=== PATIENT | male | born 1975 | race Caucasian/White ===

== ENCOUNTER 2024-06-26 08:11 | Inpatient (IN) | payer OTHER, SELFPAY ==
[2024-06-24 18:26] VITALS: BMI 28.3
[2024-06-24 18:28] VITALS: BP 127/82
[2024-06-24 18:56] LABS: % Basophils 0.5 % (0-2); % Eosinophils 2.7 % (0-6); % Immature Granulocytes 0.8 % (0-0.5); % Lymphocytes 7.3 % (20.5-51.1); % Monocytes 4.7 % (1.7-9.3); Absolute Basophils 0.1 10^3/uL (0-0.2); Absolute Eosinophils 0.6 10^3/uL (0-0.7); Absolute Immature Granulocytes 0.2 10^3/uL (0-0.05); Absolute Lymphocytes 1.6 10^3/uL (1.2-3.4); Hematocrit 38.8 % (39.0-52.0); Hemoglobin 12.9 g/dL (13.0-18.0); Mean Corp Hgb Conc. 33.2 g/dL (33.0-37.0); Mean Corpuscular Hgb 29.9 pg (27.0-31.0); Mean Platelet Volume 9.8 fL (7.4-10.4); Nucleated Red Blood Cells % 0 % (-); Platelet Count 303 10^3/uL (130-400); Red Blood Cell Count 4.31 10^6/uL (4.70-6.10); Red Cell Dist. Width 12.7 % (11.5-14.5); White Blood Cell Count 21.4 10^3/uL (4.8-10.8)
[2024-06-24 19:11] LABS: ALT (SGPT) 40 U/L (0-50); AST (SGOT) 29 U/L (17-59); Albumin 4.1 g/dl (3.5-5.0); Alkaline Phosphatase 150 U/L (38-126); Blood Urea Nitrogen 12 mg/dl (9-20); Calcium 9.1 mg/dl (8.4-10.2); Carbon Dioxide 30 mmol/L (22-30); Chloride 96 mmol/L (98-107); Glucose 98 mg/dl (70-99); Potassium 4.3 mmol/L (3.5-5.1); Sodium 138 mmol/L (135-145); Total Bilirubin 0.8 mg/dl (0.2-1.3); Total Protein 7.3 g/dl (6.3-8.2); eGFR > 60.00
[2024-06-24 20:00] VITALS: BP 130/78
[2024-06-24 20:11] VITALS: BP 126/72
--- NOTE | 2024-06-24 20:39 | ED.GENMED ---
History of Present Illness
General
Chief Complaint: Swelling
Source: patient
Exam Limitations: none
Time Seen by Provider: 06/24/24 20:25
Nursing documentation reviewed up to this point in time: agreed with
History of Present Illness
History of Present Illness:
49-year-old male with past medical history of biliary cancer recently diagnosed, currently following at [facility] but not yet on any chemotherapy; he presents to the ER with his for evaluation of ankle pain and swelling. Patient reports that he did
not have any trauma or injury. He says that on Saturday he started having pain particular with weightbearing on his left ankle. He says that on Saturday he started to notice swelling and has had increased swelling, redness, pain since. He had an
outpatient ultrasound of his leg to evaluate for DVT at [facility] today and this was negative. He had lab work sent off and he was found to have a markedly elevated white blood cell count and there was concern that he had developed an
infection and so he was referred to the emergency room. He has pains in his right flank from his known cancer diagnosis but denies any new chest pains or shortness of breath. He denies any fevers or chills. He denies any other complaints.
Review of Systems
Review of Systems
All Other Systems: ROS reviewed and negative except as documented in HPI and ROS
Constitutional: Denies fever or chills
Respiratory: Denies trouble breathing
Cardiac: Denies chest pain
ABD/GI: Denies vomiting
: Reports flank pain (Chronic)
Musculoskeletal: Reports joint swelling and edema
Skin: Reports other (Redness of the lower leg/ankle)
Neurological: Denies headache
Phy Exam
Physical Exam
Physical Exam:
General: Awake, alert, oriented x3; no acute distress
Head: Normocephalic, atraumatic
Eyes: Conjunctiva normal, EOMI
Throat: Airway intact, handling secretions
Neck: Trachea midline, supple without meningismus
Lungs: Clear to auscultation bilaterally, no wheezing, rales, rhonchi
Heart: Regular rate and rhythm, no murmurs, gallops, or rubs
Abd: Soft, non distended, nontender
Neuro: No gross deficits
Skin: Patient has some slight erythema just proximal to the lateral malleolus on the left lower leg as well as some slight erythema along the medial malleolus and the left ankle patient has significant edema of the left
Extremities: Patient has marked edema lower leg approximately the distal one third as well as the entire ankle; he has no focal tenderness along either malleolus or along the fifth metatarsal, midfoot, instep; he does have a more prominent area of
induration lateral lower leg and area of maximal erythema; he does allow for full passive range of motion of the ankle with no pain
Scores
Heart Failure Risk
Heart Failure Risk Score: Not Applicable
Heart Score for Chest Pain Patients
STEMI patient?: Not applicable
Withdrawal Assessment of Alcohol
Withdrawal Assessment Completed?: Not applicable
Course
Orders/Labs/Results
Orders:
Orders
06/24/24 18:36
Complete Blood Count/With Diff Urgent
Comprehensive Metabolic Panel Urgent
06/24/24 20:39
CT Lower Ext W/iv Cont Lt Urgent
Comment: scan mid calf to foot--c/f abscess lat lower leg
Reason For Exam: left lower leg/ankle pain, swelling
06/24/24 21:03
Blood Culture Q30M
PETER Source: Blood/Venous
Specimen Description:
Blood Culture Q30M
PETER Source: Blood/Venous
Specimen Description:
06/24/24 22:43
CeFAZolin 2 grams IV Push NOW CeFAZolin 2 GRAM [Ancef] 2 grams in 10 ml IV NOW
Abnormal Lab Results
06/24/24
18:36
WBC 21.4 H 10^3/uL
(4.8-10.8)
RBC 4.31 L 10^6/uL
(4.70-6.10)
Hgb 12.9 L g/dL
(13.0-18.0)
Hct 38.8 L %
(39.0-52.0)
Abs Immat Gran (auto) 0.2 H 10^3/uL
(0-0.05)
Absolute Neuts (auto) 18.0 H 10^3/uL
(1.4-6.5)
Absolute Monos (auto) 1.0 H 10^3/uL
(0.1-0.6)
Immature Gran % 0.8 H %
(0-0.5)
Neutrophils % 84.0 H %
(42.2-75.2)
Lymphocytes % 7.3 L %
(20.5-51.1)
Chloride 96 L mmol/L
(98-107)
Creatinine 0.5 L mg/dL
(0.7-1.3)
Alkaline Phosphatase 150 H U/L
(38-126)
06/24/24 18:36
06/24/24 18:36
Vital Signs
Initial and Last Documented VS:
Initial Vital Signs
Temp Pulse Resp BP Pulse Ox
37.6 C 78 16 127/82 98
06/24/24 18:28 06/24/24 18:28 06/24/24 18:28 06/24/24 18:28 06/24/24 18:28
Last Documented Vital Signs
Temp Pulse Resp BP Pulse Ox
37.6 C 65 21 115/74 98
06/24/24 18:28 06/24/24 22:00 06/24/24 22:00 06/24/24 22:00 06/24/24 22:00
MDM/Problems Addressed
Differential Diagnosis Includes:
Fracture, bony metastasis, cellulitis, abscess, DVT
MDM/Problems Addressed:
49-year-old male presents with swelling and pain in the left ankle in the absence of trauma; negative DVT study today, but noted to have marked leukocytosis and is concerned for infection so he was referred to the ER. Vitals and exam as above.
Ruled out for DVT earlier today at [facility] although unfortunately study not available for review. Denies any trauma no focal tenderness or pain with range of motion of the ankle very low suspicion that this is an acute fracture. He does have an
area of induration on the lateral lower leg concern that this could potentially represent an abscess although interestingly no wounds or abrasions on the skin that would represent portal of entry. Check a CT of the lower leg. Labs from triage were
notable for a leukocytosis to 20.4. Will send off blood cultures. Will reassess after the above.
CT shows subcutaneous edema but no subcutaneous emphysema, no abscess and no joint effusion to suggest that this is an inflammatory arthropathy or septic joint�my impression is this is a cellulitis; unclear etiology given that he has no breaks in
the skin on the left lower leg that would represent a portal for bacterial injury. He does have borderline fever here 99.5 �F significant leukocytosis�blood culture sent off. Will treat with IV antibiotics and err towards admission for monitoring.
Case discussed with hospitalist.
Chronic conditions affecting care:
Biliary cancer
*Radiology
Radiology exam reviewed: radiology read reviewed
*Pulse Oximetry
Patient hypoxic: no
*Critical Care Note
Total Time (30-74mins, 75-104mins- exclusive of procedures): Not Applicable
Data Reviewed
Source: patient and family
Patient Management
Discussion with other providers: Hospitalist (Discussed with hospitalist)
Escalation/DeEscalation of care consider admission/obs:
Admission indicated
ED Attending Note
-
Portions of this chart may have been created with voice recognition software.� Occasional wrong word or��sound alike� substitutions may have occurred due to the inherent limitations of voice recognition software.
Discharge Plan
Departure
Referrals:
Vadim Raygoza MD [Family Provider] -
Interventions
Interventions:
*Risk Screen - Suicide Last Done: 06/24/24 18:28
*General Assessment Last Done: 06/24/24 18:28
ED- Fall Risk Assessment Last Done: 06/24/24 20:34
*ED COVID-19 Vaccine History Last Done: 06/24/24 18:28
ED- Cardiac Assessment Last Done: 06/24/24 20:34
ED- Pulmonary Assessment Last Done: 06/24/24 20:34
ED-Skin Assessment Last Done: 06/24/24 20:34
Discharge Date and Time
Print Language: BELARUSIAN
[2024-06-24 21:54] VITALS: BP 127/70
[2024-06-24 22:00] VITALS: BP 115/74
--- NOTE | 2024-06-24 23:03 | HPS.HSE ---
Family Physician
-
Family Physician: Vadim Raygoza
Chief Complaint
-
left ankle pain
History of Present Illness
49-year-old male past medical history of cholangiocarcinoma follows at [facility] not on chemotherapy yet, presenting with left ankle pain and swelling. He denies any trauma or injury. 4 days ago he started having pain and bump in the calf. 2 days ago
started noticing swelling and increased swelling and redness and pain in the left ankle. He had outpatient ultrasound to evaluate for DVT at [facility] today this was negative. He had blood work which showed elevated white blood cell count and there was
concern that he developed infection so was sent to the emergency room. He has pain in his right flank from known cancer diagnosis but denies any new chest pain or shortness of breath. He denies any fevers or chills.
He uses marijuana. Denies smoking or nicotine use.
Medical History
Past Medical History
Past Medical History: Reports Other (cholangiocarcinoma )
Past Surgical History: Reports None
Social History
Tobacco: Non-smoker
Alcohol: None
Drug: Marijuana
Family History
Family History: Not pertinent
Allergies / Home Medications
Allergies reflects when Allergies were last updated in [employer].
Home Medications with original date entered in [employer]
Allergy/Medication List:
Allergies
Allergy/AdvReac Type Severity Reaction Status Date / Time
No Known Allergies Allergy Verified 06/24/24 18:33
Review of Systems
-
History Source: Patient
A 12 point ROS was completed and negative except as noted: Yes
Constitutional: Reports No Symptoms
EENT: Reports No Symptoms
Respiratory: Reports No Symptoms
Cardiac: Reports No Symptoms
Abdomen/GI: Reports No Symptoms
: Reports No Symptoms
Musculoskeletal: Reports No Symptoms
Skin: Reports See HPI
Neurological: Reports No Symptoms
Endocrine: Reports No Symptoms
Hematologic/Lymphatic: Reports No Symptoms
Psych: Reports No Symptoms
Physical Exam
Vital Signs
Vital Signs
Temp Pulse Resp BP Pulse Ox
99.7 F 65 21 115/74 98
06/24/24 18:28 06/24/24 22:00 06/24/24 22:00 06/24/24 22:00 06/24/24 22:00
Physical Exam
General: Well Developed, Well Nourished and No Apparent Distress
HEENT: NormoCephalic, Moist mucous membranes and Atraumatic
Respiratory: Clear
Cardiac: S1/S2 and Regular Rhythm; No Murmur or Rub
GI: Soft, Non Tender, Non Distended and Normal Bowel Sounds; No Organomegaly
Rectal: Deferred by Provider
Musculoskeletal: No Clubbing, No Cyanosis and No Edema
Skin: Other (left ankle swelling and redness ); No Rash
Neuro: Nonfocal/grossly intact
Laboratory Results
-
06/24/24 18:36
06/24/24 18:36
Laboratory Results
Total Bilirubin 0.8 mg/dl (0.2-1.3) 06/24/24 18:36
AST 29 U/L (17-59) 06/24/24 18:36
ALT 40 U/L (0-50) 06/24/24 18:36
Alkaline Phosphatase 150 U/L (38-126) H 06/24/24 18:36
Data Reviewed
-
Lab Data: Labs Reviewed by me
Old Records: Reviewed
Impression/Plan
-
IMPRESSION:
PLAN:
# Left ankle cellulitis
-CT scan left lower extremity just shows mild edema of the subcutaneous tissues of the hindfoot region without subcutaneous emphysema or involvement of muscle or fascial planes
-Venous ultrasound at [facility] today negative
-Blood cultures
-Cefazolin
Cholangiocarcinoma
-Follows at [facility]
-Not yet on chemotherapy
Full code
DVT prophylaxis�heparin
Regular diet
[2024-06-24] MEDS: ANCEF 10 IV (23:04)
[2024-06-24 23:05] VITALS: BP 123/76
[2024-06-25] VITALS: BP 115/66
[2024-06-25 00:37] VITALS: BP 115/70; BMI 27.6
[2024-06-25] MEDS: ANCEF 10 IV ×2 (05:53→14:12)
[2024-06-25 06:22] LABS: % Basophils 0.5 % (0-2); % Eosinophils 3.3 % (0-6); % Immature Granulocytes 0.8 % (0-0.5); % Lymphocytes 7.9 % (20.5-51.1); % Monocytes 5.4 % (1.7-9.3); % Neutrophils 82.1 % (42.2-75.2); Absolute Basophils 0.1 10^3/uL (0-0.2); Absolute Eosinophils 0.6 10^3/uL (0-0.7); Absolute Immature Granulocytes 0.2 10^3/uL (0-0.05); Absolute Lymphocytes 1.5 10^3/uL (1.2-3.4); Absolute Monocytes 1.1 10^3/uL (0.1-0.6); Absolute Neutrophils 16.1 10^3/uL (1.4-6.5); Hematocrit 36.3 % (39.0-52.0); Hemoglobin 12.3 g/dL (13.0-18.0); Mean Corp Hgb Conc. 33.9 g/dL (33.0-37.0); Mean Corpuscular Hgb 30.1 pg (27.0-31.0); Mean Platelet Volume 10.2 fL (7.4-10.4); Nucleated Red Blood Cells % 0 % (-); Platelet Count 281 10^3/uL (130-400); Red Blood Cell Count 4.08 10^6/uL (4.70-6.10); Red Cell Dist. Width 12.7 % (11.5-14.5); White Blood Cell Count 19.6 10^3/uL (4.8-10.8)
[2024-06-25 06:57] LABS: ALT (SGPT) 35 U/L (0-50); AST (SGOT) 27 U/L (17-59); Albumin 3.3 g/dl (3.5-5.0); Alkaline Phosphatase 145 U/L (38-126); Blood Urea Nitrogen 14 mg/dl (9-20); Calcium 8.8 mg/dl (8.4-10.2); Carbon Dioxide 31 mmol/L (22-30); Chloride 99 mmol/L (98-107); Estimated Creatinine Clearance > 125 ml/min; Glucose 100 mg/dl (70-99); Potassium 4.8 mmol/L (3.5-5.1); Sodium 138 mmol/L (135-145); Total Bilirubin 0.6 mg/dl (0.2-1.3); Total Protein 6.3 g/dl (6.3-8.2); eGFR > 60.00
[2024-06-25] MEDS: HEPARIN 5000 UNITS SC ×2 (07:53→20:29)
[2024-06-25 08:08] VITALS: BP 121/69
[2024-06-25] MEDS: MOTRIN 400 MG PO (09:46)
[2024-06-25 10:37] LABS: Uric Acid 5.2 mg/dl (3.5-8.5)
--- NOTE | 2024-06-25 11:02 | W.PN.HOSP.TC ---
Today's Communication/Plan
-
monitor vitals
see plan
ancef for now
ID evaluation
ibuprofen prn
Assessment / Plan
Assessment / Plan
General: Well Developed, Well Nourished and No Apparent Distress
HEENT: NormoCephalic, Moist mucous membranes and Atraumatic
Respiratory: Clear
Cardiac: S1/S2 and Regular Rhythm; No Murmur or Rub
GI: Soft, Non Tender, Non Distended and Normal Bowel Sounds
Skin: Other (left ankle swelling and pain )
Neuro: Nonfocal/grossly intact
Suspected sepsis 2/2 (leukocytosis,tachypnea) 2/2 possible Left ankle cellulitis
denies any trauma to the ankle
-CT scan left lower extremity just shows mild edema of the subcutaneous tissues of the hindfoot region without subcutaneous emphysema or involvement of muscle or fascial planes
-Venous ultrasound at [facility] negative
-Blood cultures pending
do not appreciate reinaldo erythema on exam; asked ID to evaluate. hx of gout in knees per patient. uric acid 5.
-cw Cefazolin for now
pain control
Cholangiocarcinoma
-Follows at [facility]
-Not yet on chemotherapy
Full code
DVT prophylaxis�heparin
Anticipated Discharge: Within 24 hours
Subjective/Interval History
-
Date of Service: June 25, 2024
still has pain
Objective Data
-
Labs:
Laboratory Results
06/25/24
05:21
WBC 19.6 H
Hgb 12.3 L
Hct 36.3 L
Plt Count 281
Sodium 138
Potassium 4.8
Chloride 99
Carbon Dioxide 31 H
BUN 14
Creatinine 0.5 L
Glucose 100 H
Calcium 8.8
Total Bilirubin 0.6
AST 27
ALT 35
Alkaline Phosphatase 145 H
Vital Signs:
Vital Signs
Temp Pulse Resp BP Pulse Ox
98.8 F 62 16 121/69 100
06/25/24 08:08 06/25/24 08:08 06/25/24 08:08 06/25/24 08:08 06/25/24 08:08
--- NOTE | 2024-06-25 12:09 | CON.ID ---
Consultation
-
Date/Time Consultation Requested: 06/25/24 11:06
Date/Time Consultation Performed: 06/25/24 12:09
Requesting Provider: Dr Hendrickson
Performing Provider: Dr Park
Reason for Consultation: cellulitis
Chief Complaint / Past History
Chief Complaint
left ankle pain
History of Present Illness
Mr Sotomayor is a 49 year old male with history of cholangiocarcinoma not yet on treatment, gout who presented here 06/24 for L ankle pain and swelling. No trauma to the ankle. No fevers or chills. He did notice pain and a bump in the left ankle.
Reports outpatient US of the left leg was negative for DVT. He has a history of gout of the right knee.
Since arrival here he has been afebrile, bp stable, HR normal, on arrival wbc 21 now 19.6, hgb 12.9, plt 303, L shift is noted, cr 0.5, na 138, lfts wnl, uric acid 5.2, CT: mild edema of the SQ hindfoot, blood cultures x2 no growth to date.
Past History
Additional Past Medical History:
cholangiocarcinoma
Past Surgical History: None
Allergy History:
No Known Allergies Allergy (Verified 06/24/24 18:33)
Medications Reviewed: Yes
Social History
Tobacco: Non-Smoker
Alcohol: None
Drug: Marijuana
Family History
Family History: Not Pertinent
Review of Systems
Review of Systems
General: Negative Fever or Chills
All systems: All other systems were reviewed and were negative
Vital Signs
Temp Pulse Resp BP Pulse Ox
98.8 F 62 16 121/69 100
06/25/24 08:08 06/25/24 08:08 06/25/24 08:08 06/25/24 08:08 06/25/24 08:08
Physical Exam
Physical Exam
Constitutional: No Acute Distress
Cardiovascular: Regular Rate and S1/S2; Negative Murmur or Rub
Pulmonary: Clear and Symmetric; Negative Wheezes, Rales or Rhonchi
Gastrointestinal: Soft, Non Tender, Non Distended and Normal Bowel Sounds
Extremities: Other (no erythema of the left ankle; there is minimal edema compared to the contralateral side, no significant warmth)
Skin: Warm and Dry; Negative Rash or Jaundice
Neurological: Awake
Lab / Diagnostic Study Results
06/25/24 05:21
06/25/24 05:21
Abs Immat Gran (auto) 0.2 10^3/uL (0-0.05) H 06/25/24 05:21
Absolute Neuts (auto) 16.1 10^3/uL (1.4-6.5) H 06/25/24 05:21
Absolute Lymphs (auto) 1.5 10^3/uL (1.2-3.4) 06/25/24 05:21
Absolute Monos (auto) 1.1 10^3/uL (0.1-0.6) H 06/25/24 05:21
Absolute Basos (auto) 0.1 10^3/uL (0-0.2) 06/25/24 05:21
Immature Gran % 0.8 % (0-0.5) H 06/25/24 05:21
Neutrophils % 82.1 % (42.2-75.2) H 06/25/24 05:21
Lymphocytes % 7.9 % (20.5-51.1) L 06/25/24 05:21
Monocytes % 5.4 % (1.7-9.3) 06/25/24 05:21
Eosinophils % 3.3 % (0-6) 06/25/24 05:21
Basophils % 0.5 % (0-2) 06/25/24 05:21
Microbiology Results
Micro:
06/24/24 21:03 Blood Culture - Pending
Blood/Venous
06/24/24 21:03 Blood Culture - Pending
Blood/Venous
Assessment / Plan
Suspected Gout of the L ankle
H/o Gout of the R knee
Recently diagnosed cholangiocarcinoma
- recommend therapeutic trial of colchicine
- no evidence of cellulitis on exam
- blood cultures no growth to date
- stopped cefazolin
if no response to colchicine could consider orthopedics input.
[2024-06-25] MEDS: COLCHICINE 0.6 MG PO ×2 (15:19→20:30)
[2024-06-25 15:30] VITALS: BP 114/60
--- NOTE | 2024-06-25 17:23 | CM ---
Met with patient to obtain information for assessment. Patient stated that he lives with his and daughter in a 3 story home with one step to enter. He described himself as independent with his ADLs, personal care, dressing and bathing. He can
drive and can get to appointments. 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
Patient denied any DME.
He has never had VN or has been to a SNF.
Patient has a prescription plan and uses, [facility] in [place] for all of his medications.
His PCP is, Vadim Harper.
Reviewed OBS status with patient. Will put OBS letter in chart.
Patient stated that he wants to return home when he is stable.
Plan: Case management will continue to follow and assist with discharge planning. Home when stable.
[2024-06-25] MEDS: TYLENOL 650 MG PO (21:38)
[2024-06-26 00:21] VITALS: BP 126/70
[2024-06-26 06:03] LABS: % Basophils 0.6 % (0-2); % Eosinophils 2.8 % (0-6); % Immature Granulocytes 0.9 % (0-0.5); % Lymphocytes 7.1 % (20.5-51.1); % Monocytes 5.4 % (1.7-9.3); % Neutrophils 83.2 % (42.2-75.2); Absolute Basophils 0.1 10^3/uL (0-0.2); Absolute Eosinophils 0.6 10^3/uL (0-0.7); Absolute Immature Granulocytes 0.2 10^3/uL (0-0.05); Absolute Lymphocytes 1.5 10^3/uL (1.2-3.4); Absolute Monocytes 1.1 10^3/uL (0.1-0.6); Absolute Neutrophils 16.9 10^3/uL (1.4-6.5); Hematocrit 37.6 % (39.0-52.0); Hemoglobin 12.5 g/dL (13.0-18.0); Mean Corp Hgb Conc. 33.2 g/dL (33.0-37.0); Mean Corpuscular Hgb 29.7 pg (27.0-31.0); Mean Corpuscular Volume 89.3 fL (80.0-94.0); Mean Platelet Volume 9.7 fL (7.4-10.4); Nucleated Red Blood Cells % 0 % (-); Platelet Count 293 10^3/uL (130-400); Red Blood Cell Count 4.21 10^6/uL (4.70-6.10); Red Cell Dist. Width 12.9 % (11.5-14.5); White Blood Cell Count 20.4 10^3/uL (4.8-10.8)
[2024-06-26 06:31] LABS: ALT (SGPT) 31 U/L (0-50); AST (SGOT) 23 U/L (17-59); Albumin 3.6 g/dl (3.5-5.0); Alkaline Phosphatase 155 U/L (38-126); Blood Urea Nitrogen 16 mg/dl (9-20); Calcium 9.1 mg/dl (8.4-10.2); Carbon Dioxide 32 mmol/L (22-30); Chloride 100 mmol/L (98-107); Estimated Creatinine Clearance > 125 ml/min; Glucose 104 mg/dl (70-99); Potassium 4.8 mmol/L (3.5-5.1); Sodium 140 mmol/L (135-145); Total Bilirubin 0.8 mg/dl (0.2-1.3); Total Protein 6.7 g/dl (6.3-8.2); eGFR > 60.00
[2024-06-26 07:30] VITALS: BP 125/73
[2024-06-26] MEDS: COLCHICINE 0.6 MG PO (09:19)
[2024-06-26] MEDS: HEPARIN 5000 UNITS SC (09:19)
--- NOTE | 2024-06-26 10:39 | W.PN.ID1 ---
Date of Service
Date of Service: June 26, 2024
Today's Communication
- markedly improved on therapeutic trial of colchicine pain from 5 yesterday to 1 today
- no evidence of cellulitis on exam
- blood cultures no growth to date
- leukocytosis is due to gout
ID service will no longer actively follow this patient please recall for further questions
Assessment / Plan
Gout of the L ankle
H/o Gout of the R knee
Leukocytosis
Recently diagnosed cholangiocarcinoma
- markedly improved on therapeutic trial of colchicine pain from 5 yesterday to 1 today
- no evidence of cellulitis on exam
- blood cultures no growth to date
- leukocytosis is due to gout
ID service will no longer actively follow this patient please recall for further questions
Chief Complaint
-: Other (gout)
Subjective / Review of Systems
afebrile
bp stable
no reported events overnight
denies: headaches, sinus tenderness, sore throat, cough, sputum production, nausea, vomiting, diarrhea, constipation, dysuria, new rashes, new joint pains
pt asking about dc
was very upset this AM about wbc count changing from 19.6 to 20.4. We re-discussed that gout commonly causes leukocytosis and there is no evidence of cellulitis on exam. I expressed my worry about her emotional state and encouraged her to
seek additional support. She was not open to this suggestion at this time.
Vital Signs / Physical Exam
Vital Signs
Vital Signs
Temp Pulse Resp BP Pulse Ox
98.4 F 61 17 125/73 96
06/26/24 07:30 06/26/24 07:30 06/26/24 07:30 06/26/24 07:30 06/26/24 07:30
Physical Exam
Constitutional: No Acute Distress and Chronically Ill
Cardiovascular: Regular Rate and S1/S2; Negative Murmur or Rub
Pulmonary: Clear and Symmetric; Negative Wheezes or Rales
Gastrointestinal: Soft, Non Tender, Non Distended and Normal Bowel Sounds
Skin: Warm, Dry and Other (left ankle no erythema, warmth, tenderness or rash); Negative Rash or Jaundice
Objective Data
Lab Data
Lab Results
06/26/24 05:32
06/26/24 05:32
Estimated Creat Clear > 125 ml/min 06/26/24 05:32
Total Bilirubin 0.8 mg/dl (0.2-1.3) 06/26/24 05:32
AST 23 U/L (17-59) 06/26/24 05:32
ALT 31 U/L (0-50) 06/26/24 05:32
Alkaline Phosphatase 155 U/L (38-126) H 06/26/24 05:32
Most recent labs reviewed.
Micro Results:
06/24/24 21:03 Blood Culture - Preliminary
Blood/Venous No Growth in 24 hours- Final report to follow
06/24/24 21:03 Blood Culture - Preliminary
Blood/Venous No Growth in 24 hours- Final report to follow
--- NOTE | 2024-06-26 11:17 | W.PN.HOSP.TC ---
Today's Communication/Plan
-
Monitor vital signs see plan
Continue with ibuprofen as needed, colchicine
Discharge today
Discussed with spouse at bedside
Discussed with primary oncology at [facility]
Time of discharge 37 minutes
Assessment / Plan
Assessment / Plan
General: Well Developed, Well Nourished and No Apparent Distress
HEENT: NormoCephalic, Moist mucous membranes and Atraumatic
Respiratory: Clear
Cardiac: S1/S2 and Regular Rhythm; No Murmur or Rub
GI: Soft, Non Tender, Non Distended and Normal Bowel Sounds
Skin: Other (left ankle swelling which has improved )
Neuro: Nonfocal/grossly intact
Suspected sepsis 2/2 (leukocytosis,tachypnea) 2/2 possible gout flare
No erythema on admission, discussed with infectious disease, given lack of fever and other symptoms does not suspect cellulitis. Patient symptoms have markedly improved with colchicine. Ibuprofen as needed. Advised patient and family to see
primary care provider early next week to look at the ankle joint. Also discussed with patient's primary oncologist Dr. Chavez at [facility] who agrees with the plan. If symptoms get worse then patient will need joint tap; blood cultures so far neg
Patient did had leukocytosis in May before this ankle swelling. Suspect leukocytosis could likely be from cholangiocarcinoma
denies any trauma to the ankle
-CT scan left lower extremity just shows mild edema of the subcutaneous tissues of the hindfoot region without subcutaneous emphysema or involvement of muscle or fascial planes
-Venous ultrasound at [facility] negative
-Blood cultures NGTD
do not appreciate reinaldo erythema on exam; discussed with ID, agree this could likely be from gout. hx of gout in knees per patient. uric acid 5.
Monitor off antibiotics.
pain control
Cholangiocarcinoma
-Follows at [facility]
-Not yet on chemotherapy
Full code
DVT prophylaxis�heparin
Anticipated Discharge: Today
Subjective/Interval History
-
Date of Service: June 26, 2024
pain is better
Objective Data
-
Labs:
Laboratory Results
06/26/24
05:32
WBC 20.4 H
Hgb 12.5 L
Hct 37.6 L
Plt Count 293
Sodium 140
Potassium 4.8
Chloride 100
Carbon Dioxide 32 H
BUN 16
Creatinine 0.6 L
Glucose 104 H
Calcium 9.1
Total Bilirubin 0.8
AST 23
ALT 31
Alkaline Phosphatase 155 H
Vital Signs:
Vital Signs
Temp Pulse Resp BP Pulse Ox
98.4 F 61 17 125/73 96
06/26/24 07:30 06/26/24 07:30 06/26/24 07:30 06/26/24 07:30 06/26/24 07:30
I&O
06/25/24 06/26/24 06/27/24
06:59 06:59 06:59
Intake Total 480 / 480
Balance 480 / 480
--- NOTE | 2024-06-26 11:27 | W.DCSUMMARY ---
Discharge Summary
Discharge Data
Date of Admission: 06/26/24
Date of Discharge: 06/26/24
-
Pending Results: Yes
Hospital Course
49-year-old male with past medical history of recent newly diagnosed cholangiocarcinoma came to the hospital with left ankle joint pain and swelling. CT scan on admission did show mild edema of the subcutaneous tissue. Initially patient was
started on antibiotics given his symptoms and leukocytosis. Infectious disease was also consulted who thought patient symptoms are likely secondary to gout flare. Antibiotics was then discontinued. I did discuss leukocytosis with patient's primary
oncologist and we determined that he had leukocytosis last month as well which is likely thought was secondary to cholangiocarcinoma. Patient was started on ibuprofen and colchicine. Blood cultures were also drawn on admission which were negative.
Over time patient swelling and pain continue to improve. Patient was instructed that if he develops fever and worsening swelling/pain then please return to the ED and will likely need ankle joint tap. Since his symptoms continue to improve off
the antibiotics, he was then discharged home with instructions to follow-up with all his physicians outpatient.
Discharge Plan
-
Patient Disposition: Home (Routine Discharge)
Discharge Diagnosis/Procedures: Suspected gout of left ankle
Leukocytosis
Diet: As tolerated
Activity: As tolerated
Driving Restrictions: As prior to admission
Bathing Restrictions: None
Activity Restrictions/Additional Instructions:
If symptoms get worse then come to the ED for evaluation
Referrals:
Vadim Rivera, DO [Family Provider] - in less than 1 week
Prescriptions:
New
acetaminophen 325 mg Tablet
650 mg PO Q4HPRN PRN (Reason: mild pain/SHEA/temp> 100.4F) Qty: 0 0RF
ibuprofen 400 mg Tablet
400 mg PO Q6HPRN PRN (Reason: mild pain) Qty: 0 0RF
colchicine 0.6 mg Tablet
0.6 mg PO DAILY Qty: 30 0RF
famotidine 20 mg tablet
20 mg PO DAILY Qty: 30 0RF
Discharge Orders:
Discharge Patient (As Directed); Ordered 06/26/24
Ordered By: Glen Hendrickson
Discharge Date and Time
Discharge Date/Time: 06/26/24 12:32
Print Language: MOROCCAN
[2024-06-26 12:17] VITALS: BP 127/71
--- NOTE | 2024-06-26 14:56 | CM ---
MD entered order for discharge.
Pt declined VN
PLAN Home no needs
== END 2024-06-26 12:32 | disposition home or self-care (01) | DRG 554 ==
LOC: 3 WEST ACU 08:11
PROVIDERS: Emergency Medicine; ADMITTING PHYSICIAN Hospitalist; ATTENDING PHYSICIAN Internal Medicine; EMERGENCY PHYSICIAN Emergency Medicine; FAMILY PHYSICIAN Family Medicine; OTHER PHYSICIAN Student in an Organized Health Care Education/Training Program
DX: M10.9 Gout, unspecified (principal); C22.1 Intrahepatic bile duct carcinoma; M25.572 Pain in left ankle and joints of left foot; D72.829 Elevated white blood cell count, unspecified
CPT/HCPCS: 73701; 80053; 84550; 85025; 87040; 96374; 99285; Q9967

== ENCOUNTER 2024-07-12 17:50 | Emergency (ER) | payer OTHER, SELFPAY ==
[2024-07-12 18:22] VITALS: BMI 28.8
[2024-07-12 18:24] VITALS: BP 118/62
[2024-07-12 18:36] LABS: % Basophils 0.8 % (0-2); % Eosinophils 4.2 % (0-6); % Immature Granulocytes 0.9 % (0-0.5); % Lymphocytes 11.5 % (20.5-51.1); % Monocytes 1.6 % (1.7-9.3); Absolute Basophils 0.1 10^3/uL (0-0.2); Absolute Eosinophils 0.4 10^3/uL (0-0.7); Absolute Immature Granulocytes 0.1 10^3/uL (0-0.05); Absolute Lymphocytes 1.1 10^3/uL (1.2-3.4); Absolute Monocytes 0.2 10^3/uL (0.1-0.6); Absolute Neutrophils 7.9 10^3/uL (1.4-6.5); Hematocrit 29.8 % (39.0-52.0); Hemoglobin 9.9 g/dL (13.0-18.0); Mean Corp Hgb Conc. 33.2 g/dL (33.0-37.0); Mean Corpuscular Hgb 29.4 pg (27.0-31.0); Mean Corpuscular Volume 88.4 fL (80.0-94.0); Mean Platelet Volume 9.7 fL (7.4-10.4); Nucleated Red Blood Cells % 0 % (-); Platelet Count 208 10^3/uL (130-400); Red Blood Cell Count 3.37 10^6/uL (4.70-6.10); Red Cell Dist. Width 12.8 % (11.5-14.5); White Blood Cell Count 9.8 10^3/uL (4.8-10.8)
[2024-07-12 18:50] LABS: COVID-19 Antigen Negative (Negative)
[2024-07-12 18:57] LABS: ALT (SGPT) 19 U/L (0-50); AST (SGOT) 14 U/L (17-59); Albumin 3.3 g/dl (3.5-5.0); Alkaline Phosphatase 115 U/L (38-126); Blood Urea Nitrogen 15 mg/dl (9-20); Calcium 8.4 mg/dl (8.4-10.2); Carbon Dioxide 30 mmol/L (22-30); Chloride 95 mmol/L (98-107); Estimated Creatinine Clearance > 125 ml/min; Glucose 137 mg/dl (70-99); Potassium 3.8 mmol/L (3.5-5.1); Sodium 133 mmol/L (135-145); Total Bilirubin 0.7 mg/dl (0.2-1.3); Total Protein 6.1 g/dl (6.3-8.2); eGFR > 60.00
--- NOTE | 2024-07-12 19:15 | ED.GENMED ---
History of Present Illness
General
Chief Complaint: Fever
Source: patient, records and significant other
Time Seen by Provider: 07/12/24 18:09
Nursing documentation reviewed up to this point in time: agreed with
History of Present Illness
History of Present Illness:
Patient is a 49-year-old male with past medical history of recently diagnosed intrahepatic cholangiocarcinoma who had his first chemotherapy treatment 5 days ago, presents for evaluation of fever. Patient reports that last week he had his port
placed. Patient states that today he had a fever with a Tmax of 100.7 �F on 2 separate thermometers. Patient contacted the oncologist on-call at [place] where he is being treated and was advised to come to the emergency department for evaluation.
Patient reports that he feels well and denies chills, body aches, rhinorrhea, nasal congestion, sore throat, cough, chest pain, shortness of breath, abdominal pain, nausea, vomiting, urinary symptoms, change in his bowel habits, any unusual rashes
or lesions. Patient denies taking any medication for his fever prior to arrival. Patient denies any known sick contacts recently.
Past History
Past History
ED Past Medical History: Cancer (intrahepatic cholangiocarcinoma)
ED Past Surgical History: None
Social History
Tobacco: Non-smoker
Alcohol: None
Drug: Marijuana
Personal:
Review of Systems
Review of Systems
Allergies reviewed?: Yes
All Other Systems: ROS reviewed and negative except as documented in HPI and ROS
Constitutional: Reports fever
EENT: Reports no symptoms
Respiratory: Reports no symptoms
Cardiac: Reports no symptoms
ABD/GI: Reports no symptoms
: Reports no symptoms
Musculoskeletal: Reports no symptoms
Skin: Reports no symptoms
Neurological: Reports no symptoms
Endocrine: Reports no symptoms
Hematologic/Lymphatic: Reports no symptoms
Psychiatric: Reports no symptoms
Phy Exam
General Physical Exam
General Presentation: well appearing, no apparent distress and other (Port noted to the right anterior chest wall, no erythema or swelling noted)
General Skin: warm and dry
General Habitus: normal
General Mental: alert
General Hydration: appears well hydrated
ENT Exam
ENT Exam: EOMI, pharynx normal, neck supple and normocephalic
Eye Exam
Eye Exam: PERRL, cornea clear and conjunctiva normal
Cardiovascular Exam
Cardiovascular Exam: regular rate/rhythm, no edema, no murmur and normal peripheral pulses
Pulmonary Exam
Pulmonary Exam: lungs clear, no respiratory distress, no rales, no crackles, no rhonchi, no stridor, no wheezing and no cough
Gastrointestinal Exam
Gastrointestinal Exam: normal bowel sounds, non tender, soft, no organomegaly, no pulsatile mass and non distended
Neurological Exam
Neurological Exam: alert, oriented x3, no motor deficits and speech normal
Musculoskeletal Exam
Musculoskeletal Exam: full ROM and no edema
Skin Exam
Skin Exam: normal color, warm/dry, no rash and no petechia
Psychiatric Exam
Psychiatric Exam: normal mood/affect
Course
Orders/Labs/Results
Orders:
Orders
07/12/24 18:27
CMP [Comprehensive Metabolic Panel] Urgent
COVID-19 Antigen Urgent
Source: Nasal Swab
Complete Blood Count/With Diff Urgent
Influenza A+B Rapid Molecular Urgent
PETER Source: Nasal Swab
Specimen Description:
07/12/24 18:45
CR Chest - 2 Views Urgent
Comment:
Reason For Exam: fever of unknown origin, on chemotherapy
07/12/24 18:59
Urinalysis Urgent
Date Specimen was Collected: 07/12/24
Time Specimen was Collected: 18:57
Urine Microscopic Urgent
Date Specimen was Collected: 07/12/24
Time Specimen was Collected: 18:57
Urine Culture Urgent
PETER Source: U
Specimen Description:
Date Specimen was Collected: 07/12/24
Time Specimen was Collected: 18:57
07/12/24 20:34
Add On- LAB Urgent
Tests Added?: Urine Culture
07/12/24 20:38
Blood Culture Q30M
PETER Source: Blood/Venous
Specimen Description:
Blood Culture Q30M
PETER Source: Blood/Venous
Specimen Description:
Abnormal Lab Results
07/12/24 07/12/24
18:27 18:59
RBC 3.37 L 10^6/uL
(4.70-6.10)
Hgb 9.9 L g/dL
(13.0-18.0)
Hct 29.8 L %
(39.0-52.0)
Abs Immat Gran (auto) 0.1 H 10^3/uL
(0-0.05)
Absolute Neuts (auto) 7.9 H 10^3/uL
(1.4-6.5)
Absolute Lymphs (auto) 1.1 L 10^3/uL
(1.2-3.4)
Immature Gran % 0.9 H %
(0-0.5)
Neutrophils % 81.0 H %
(42.2-75.2)
Lymphocytes % 11.5 L %
(20.5-51.1)
Monocytes % 1.6 L %
(1.7-9.3)
Sodium 133 L mmol/L
(135-145)
Chloride 95 L mmol/L
(98-107)
Creatinine 0.5 L mg/dL
(0.7-1.3)
Glucose 137 H mg/dl
(70-99)
AST 14 L U/L
(17-59)
Total Protein 6.1 L g/dl
(6.3-8.2)
Albumin 3.3 L g/dl
(3.5-5.0)
Urine Occult Blood 3+ A
(Negative)
Urine Albumin 1+ A
(Neg - Trace)
07/12/24 18:27
07/12/24 18:27
Vital Signs
Initial and Last Documented VS:
Initial Vital Signs
BP Pulse Ox
118/62 98
07/12/24 18:24 07/12/24 18:24
Last Documented Vital Signs
Pulse Resp BP Pulse Ox
77 19 105/55 95
07/12/24 19:30 07/12/24 19:30 07/12/24 21:00 07/12/24 21:00
*Critical Care Note
Total Time (30-74mins, 75-104mins- exclusive of procedures): Not Applicable
Update Note
Update Note:
Patient is a 49-year-old male with past medical history of intrahepatic cholangiocarcinoma recently started on chemotherapy who presents to the emergency department for evaluation of a fever of 100.7 �F at home. Patient contacted his oncologist who
referred him to the emergency department. Patient reports that he is currently asymptomatic. On arrival, patient's vital signs are stable, he is afebrile without antipyretics. On exam, patient is very well-appearing, he is in no acute distress,
he has a normal cardiopulmonary exam and a benign abdomen. Labs were obtained and are nonactionable. Chest x-ray demonstrates no acute disease process. Urinalysis is not consistent with infection. Influenza and COVID swab is negative. I spoke
with on-call oncologist at [place], Dr. Laureano, who states that the patient can be started on oral antibiotics, but does not need to be. I spoke with ED attending and we agreed that given the fact that patient is afebrile here and without infectious
source, will not initiate antibiotics. Urine culture and blood cultures are pending. Patient has an appointment with his oncologist which he was encouraged to keep. Patient and his were educated on return precautions, they expressed
understanding of the plan and agreed.
ED Attending Note
-
Portions of this chart may have been created with voice recognition software.� Occasional wrong word or��sound alike� substitutions may have occurred due to the inherent limitations of voice recognition software.
Discharge Plan
Departure
Patient Disposition: Home (Routine Discharge)
Date of Disposition: 07/12/24
Time of Disposition: 21:03
Patient with high blood pressure during this ER visit?: No
Condition: Good
Covid-19: Negative COVID-19
Discharge Problem:
Encounter for medical screening examination
Instructions: Fever, Adult ED
Prescriptions:
No Action
acetaminophen 325 mg Tablet
650 mg PO Q4HPRN PRN (Reason: mild pain/SHAE/temp> 100.4F) Qty: 0 0RF
ibuprofen 400 mg Tablet
400 mg PO Q6HPRN PRN (Reason: mild pain) Qty: 0 0RF
colchicine 0.6 mg Tablet
0.6 mg PO DAILY Qty: 30 0RF
famotidine 20 mg tablet
20 mg PO DAILY Qty: 30 0RF
Referrals:
Vadim Rivera, [Family Provider] -
Activity Restrictions/Additional Instructions:
You were seen in the emergency department for evaluation of a fever at home. While you were in the emergency department you had blood work, urinalysis, chest x-ray. No source of infection was found. We discussed your case with the oncologist
on-call at [place]. We feel it is safe for you to be discharged home but recommend you follow-up closely with your oncologist as scheduled tomorrow. Please return to the emergency department if you develop a fever greater than 100.4 �F, chest pain,
shortness of breath, cough, abdominal pain, vomiting, or for any other worsening or concerning symptoms.
Interventions
Interventions:
*Risk Screen - Suicide Last Done: 07/12/24 17:51
*General Assessment Last Done: 07/12/24 17:51
*Neglect/Abuse Screening Last Done: 07/12/24 21:17
ED- Fall Risk Assessment Last Done: 07/12/24 18:22
*ED COVID-19 Vaccine History Last Done: 07/12/24 17:51
*Nursing Disposition Last Done: 07/12/24 21:17
ED- Neurological Assessment Last Done: 07/12/24 18:22
ED-Skin Assessment Last Done: 07/12/24 18:22
Discharge Date and Time
Discharge Date/Time: 07/12/24 21:36
Print Language: SINHALA
[2024-07-12 19:18] LABS: Urine Albumin 1+ (Neg - Trace); Urine Bilirubin Negative (Negative); Urine Character Clear (Clear); Urine Color Yellow; Urine Glucose Negative (Negative); Urine Ketone Negative (Negative); Urine Leukocyte Negative (Negative); Urine Nitrite Negative (Negative); Urine Occult Blood 3+ (Negative); Urine Specific Gravity 1.015 (<1.030); Urine Urobilinogen Negative (Neg - 1+)
[2024-07-12 19:47] LABS: Urine Red Blood Cell 0-2 /HPF (0-2); Urine Squamous Cell 0-2 /LPF (Few)
[2024-07-12 20:36] VITALS: BP 115/64
[2024-07-12 21:00] VITALS: BP 105/55
== END 2024-07-12 21:36 | disposition home or self-care (01) ==
LOC: EMR 17:50
PROVIDERS: Physician Assistant Medical; EMERGENCY PHYSICIAN Student in an Organized Health Care Education/Training Program; FAMILY PHYSICIAN Family Medicine
DX: R50.9 Fever, unspecified (principal); C22.1 Intrahepatic bile duct carcinoma; Z79.60 Long term (current) use of unspecified immunomodulators and immunosuppressants; Z11.52 Encounter for screening for COVID-19
CPT/HCPCS: 99284; 71046; 80053; 81003; 81015; 85025; 87040; 87086; 87502; 87811